=== PATIENT | female | born 1930 | race Caucasian/White ===

== ENCOUNTER → 2016-10-02 | Outpatient (REF) | payer OTHER ==
[2016-10-02 16:29] LABS: ANION GAP 5 MEQ/L (8-16); BLOOD UREA NITROGEN 20 MG/DL (7-18); CALCIUM LEVEL 9.5 MG/DL (8.8-10.2); CARBON DIOXIDE LEVEL 32 MEQ/L (21-32); CHLORIDE LEVEL 105 MEQ/L (98-107); CREATININE FOR GFR 0.94 MG/DL (0.55-1.02); GLOMERULAR FILTRATION RATE > 60.0 (>32); GLUCOSE, FASTING 84 MG/DL (83-110); POTASSIUM SERUM 4.4 MEQ/L (3.5-5.1); SODIUM LEVEL 142 MEQ/L (136-145)
== END ==
LOC: M SFHCPLAZ 13:53
PROVIDERS: ATTEND Family Medicine
DX: I10 Essential (primary) hypertension (principal)
CPT/HCPCS: 80048; G0463

== ENCOUNTER → 2017-06-10 | Outpatient (REF) | payer OTHER ==
[2017-06-10 20:03] LABS: ANION GAP 6 MEQ/L (8-16); BLOOD UREA NITROGEN 15 MG/DL (7-18); CALCIUM LEVEL 9.3 MG/DL (8.8-10.2); CARBON DIOXIDE LEVEL 32 MEQ/L (21-32); CHLORIDE LEVEL 109 MEQ/L (98-107); CREATININE FOR GFR 0.94 MG/DL (0.55-1.30); GLOMERULAR FILTRATION RATE > 60.0 (>32); GLUCOSE, FASTING 87 MG/DL (70-100); POTASSIUM SERUM 4.3 MEQ/L (3.5-5.1); SODIUM LEVEL 147 MEQ/L (136-145)
== END ==
LOC: M SFHCPLAZ 15:32
DX: I10 Essential (primary) hypertension (principal); Z23 Encounter for immunization
CPT/HCPCS: 80048

== ENCOUNTER → 2017-06-16 | Outpatient (REF) | payer OTHER | LOC: M LAB REF 12:34 | DX: R53.83 Other fatigue (principal); R80.0 Isolated proteinuria | CPT/HCPCS: 87086 ==

== ENCOUNTER → 2018-08-18 | Outpatient (REF) | payer MEDICARE ==
[2018-08-18 15:01] LABS: BASO % 0.3 % (0.0-1.0); EOS # 0.1 10^3/uL (0.0-0.50); EOS % 1.6 % (0.0-3.0); HEMATOCRIT 34.2 % (36.0-47.0); HEMOGLOBIN 10.9 g/dl (12.0-15.5); LYMPH # 1.3 10^3/uL (1.5-4.5); LYMPH % 16.6 % (24.0-44.0); MEAN CORPUSCULAR HEMOGLOBIN 29.9 pg (27.0-33.0); MEAN CORPUSCULAR HGB CONC 31.9 g/dl (32.0-36.5); MEAN CORPUSCULAR VOLUME 93.7 fl (80.0-96.0); MONO # 0.6 10^3/uL (0.0-0.8); MONO % 7.8 % (0.0-5.0); NEUTROPHILS # 5.6 10^3/uL (1.8-7.7); NEUTROPHILS % 73.3 % (36.0-66.0); PLATELET COUNT, AUTOMATED 316 10^3/uL (150-450); RED BLOOD COUNT 3.65 10^6/uL (4.00-5.40); WHITE BLOOD COUNT 7.7 10^3/uL (4.0-10.0)
[2018-08-18 15:29] LABS: CREATININE FOR GFR 1.15 MG/DL (0.55-1.30); GLOMERULAR FILTRATION RATE 47.5 (>32); POTASSIUM SERUM 4.1 MEQ/L (3.5-5.1)
[2018-08-18 15:30] LABS: CALCIUM LEVEL 8.8 MG/DL (8.8-10.2); URIC ACID 13.3 MG/DL (2.6-6.0)
== END ==
LOC: M SFHCPLAZ 13:53
PROVIDERS: ATTEND Family Medicine
DX: I50.9 Heart failure, unspecified (principal); L03.116 Cellulitis of left lower limb
CPT/HCPCS: 36415; 80048; 83880; 84550; 85025; G0463

== ENCOUNTER → 2018-08-21 | Outpatient (REF) | payer MEDICARE ==
[2018-08-21 16:22] LABS: CALCIUM LEVEL 9.4 MG/DL (8.8-10.2); CREATININE FOR GFR 1.24 MG/DL (0.55-1.30); GLOMERULAR FILTRATION RATE 43.6 (>32); POTASSIUM SERUM 4.2 MEQ/L (3.5-5.1)
== END ==
LOC: M SFHCPLAZ 14:53
PROVIDERS: ATTEND Family Medicine
DX: I50.9 Heart failure, unspecified (principal)

== ENCOUNTER → 2018-09-14 | Outpatient (REF) | payer MEDICARE ==
[2018-09-14 19:32] LABS: CALCIUM LEVEL 9.1 MG/DL (8.8-10.2); CREATININE FOR GFR 1.76 MG/DL (0.55-1.30); GLOMERULAR FILTRATION RATE 29.1 (>32)
== END ==
LOC: M SFHCPLAZ 14:02
PROVIDERS: ATTEND Family Medicine
DX: I50.43 Acute on chronic combined systolic (congestive) and diastolic (congestive) heart failure (principal)

== ENCOUNTER → 2018-09-18 | Outpatient (REF) | payer MEDICARE ==
[2018-09-18 17:09] LABS: CALCIUM LEVEL 8.8 MG/DL (8.8-10.2); CREATININE FOR GFR 1.56 MG/DL (0.55-1.30); GLOMERULAR FILTRATION RATE 33.4 (>32); POTASSIUM SERUM 3.6 MEQ/L (3.5-5.1)
== END ==
LOC: M SFHCPLAZ 12:42
PROVIDERS: ATTEND Family Medicine
DX: R79.89 Other specified abnormal findings of blood chemistry (principal)

== ENCOUNTER → 2018-10-05 | Outpatient (CLI) | payer MEDICARE ==
--- NOTE | 2018-10-05 15:57 | REP ---
Right lower extremity Duplex Doppler venous ultrasound: Real time compression and duplex Doppler interrogation of the right lower extremity deep venous system is performed. The right common femoral, superficial femoral and popliteal veins are fully compressible with transducer pressure and demonstrate normal spontaneous and phasic flow, without evidence of deep venous thrombosis. Impression: No evidence of deep venous thrombosis of the right lower extremity femoral popliteal venous system. A Nolen's cyst measures 5.2 x 0.9 x 2.6 cm. Electronically Signed by Benjamín Erwin MD 10/05/2018 03:47 P
[2018-10-05 16:08] LABS: CALCIUM LEVEL 8.2 MG/DL (8.8-10.2); CREATININE FOR GFR 1.83 MG/DL (0.55-1.30); GLOMERULAR FILTRATION RATE 27.8 (>32); POTASSIUM SERUM 3.8 MEQ/L (3.5-5.1)
== END ==
LOC: M RAD 15:02
PROVIDERS: ATTEND Family Medicine
DX: M71.21 Synovial cyst of popliteal space [Baker], right knee (principal); M79.89 Other specified soft tissue disorders; R94.4 Abnormal results of kidney function studies
CPT/HCPCS: 36415; 80048; 93971; G0463

== ENCOUNTER → 2018-12-01 | Outpatient (REF) | payer MEDICARE ==
[2018-12-01 17:45] LABS: FERRITIN 106 NG/ML (8-252); IRON (FE) 42 UG/DL (50-170); PERCENT SATURATION 18.5 % (13.2-45.0); TOTAL IRON BINDING CAPACITY 227 UG/DL (250-450)
[2018-12-01 17:48] LABS: VITAMIN B12 LEVEL > 2000 PG/ML
[2018-12-01 17:49] LABS: FOLATE > 24.0 NG/ML
== END ==
LOC: M LAB REF 17:01
PROVIDERS: ATTEND Internal Medicine Nephrology
DX: D64.9 Anemia, unspecified (principal)

== ENCOUNTER → 2018-12-07 | Outpatient (CLI) | payer MEDICARE ==
[~2018-12-07] MED LIST: ADV250INH INH; ALLO100T PO; ARIC1TAB PO; ASPI81TA85 PO; BYST5TAB2 PO; CALC500C16 PO; CALC500T68 PO; COLC1TAB14 PO; CVS5000S2 PO; IRBE300T10 PO; SIMV40TA2 PO; ZYLO300T6 PO
--- NOTE | 2018-12-07 11:58 | REP ---
REASON FOR EXAM: History of renal calculi and renal disease. COMPARISON: There are no priors for comparison. Right kidney measures 8.6 x 4 x 4.1 cm and left kidney measures 9 x 4 x 3.4 cm. The renal cortical echoes are within normal limits. Cortical medullary differentiation is preserved. No hydronephrosis is seen in either kidney. In the inferior pole of the right kidney, there are two anechoic structures, one measures 2.4 x 1.8 x 2.5 cm and the other 3.5 x 2.3 x 3.1 cm. Both represent Bosniak class I renal cysts. There are no septations or mural nodules. There is an anechoic structure in the interpolar region of the left kidney measuring 2 x 1.8 x 1.7 cm exhibiting posterior wall enhancement and increased through transmission. This represents simple cyst. There are two echogenic foci in the inferior pole of the left kidney one measures 6 mm and the other 8 mm. These cast subtle acoustic shadows consistent with calcific deposition. Pre- and postvoid urinary volume calculations were obtained. The pre-void volume calculation was measured at 104 mL and the postvoid calculation was measured at 17 mL rendering a 16% postvoid residual. No bladder wall abnormalities were seen. IMPRESSION: 1. Bilateral renal cysts. 2. Echogenic foci seen in the left kidney consistent with renal calculi. It should be stated that an old CT scan on 09/22/2015 did show left renal calculi. I cannot state with certainty that the calcifications seen today represent the calcifications seen on the CT. If clinically relevant obtain CT without contrast so as it can be exactly compared to the prior CT. Electronically Signed by Juan Montelongo DO 12/07/2018 12:49 P
== END ==
LOC: M RAD 09:46
PROVIDERS: ATTEND Internal Medicine Nephrology
DX: I50.9 Heart failure, unspecified (principal); I12.9 Hypertensive chronic kidney disease with stage 1 through stage 4 chronic kidney disease, or unspecified chronic kidney disease; N18.3 Chronic kidney disease, stage 3 (moderate); N28.1 Cyst of kidney, acquired

== ENCOUNTER 2018-12-14 09:38 | Inpatient (IN) | payer MEDICARE ==
[~2018-12-14] VITALS: Ht 154.9 cm; Wt 65.1 kg
[2018-12-14] MEDS ORDERED: ASPI81TA85 PO (10:10)
[2018-12-14] MEDS ORDERED: ARIC1TAB PO (10:10)
[2018-12-14] MEDS ORDERED: COLC1TAB14 PO (10:10)
[2018-12-14] MEDS ORDERED: IRBE300T10 PO (10:10)
[2018-12-14] MEDS ORDERED: SIMV40TA2 PO (10:10)
[2018-12-14] MEDS ORDERED: BYST5TAB2 PO (10:10)
[2018-12-14] MEDS ORDERED: ALLO100T PO (10:10)
[2018-12-14] MEDS ORDERED: CALC500T68 PO (10:10)
[2018-12-14] MEDS ORDERED: CVS5000S2 PO (10:10)
[2018-12-14 11:08] LABS: BASO % 0.2 % (0.0-1.0); EOS # 0.3 10^3/uL (0.0-0.50); EOS % 3.2 % (0.0-3.0); HEMATOCRIT 36.1 % (36.0-47.0); HEMOGLOBIN 11.8 g/dl (12.0-15.5); LYMPH # 0.8 10^3/uL (1.5-4.5); LYMPH % 7.5 % (24.0-44.0); MEAN CORPUSCULAR HGB CONC 32.7 g/dl (32.0-36.5); MEAN CORPUSCULAR VOLUME 91.9 fl (80.0-96.0); MONO # 0.4 10^3/uL (0.0-0.8); MONO % 4.2 % (0.0-5.0); NEUTROPHILS # 8.8 10^3/uL (1.8-7.7); NEUTROPHILS % 83.9 % (36.0-66.0); PLATELET COUNT, AUTOMATED 162 10^3/uL (150-450); RED BLOOD COUNT 3.93 10^6/uL (4.00-5.40); WHITE BLOOD COUNT 10.5 10^3/uL (4.0-10.0)
[2018-12-14] MEDS ORDERED: ACETAMINOPHEN TAB 650MG DOSE (2X325MG) PO ONE (11:15)
[2018-12-14] MEDS ORDERED: cefTRIAXone SOD 1 GM in D5W MINI-BAG PLUS 50 ML IV ONE (11:30)
[2018-12-14 11:47] LABS: ALBUMIN 2.8 GM/DL (3.2-5.2); ALT/SGPT 15 U/L (12-78); BILIRUBIN,DIRECT 0.2 MG/DL (0.0-0.2); BILIRUBIN,TOTAL 0.7 MG/DL (0.2-1.0); BLOOD UREA NITROGEN 26 MG/DL (7-18); CALCIUM LEVEL 8.4 MG/DL (8.8-10.2); CARBON DIOXIDE LEVEL 27 MEQ/L (21-32); CHLORIDE LEVEL 99 MEQ/L (98-107); CK-MB VALUE MASS 3.1 NG/ML (<3.6); CPK CREATINE PHOSPHOKINASE 218 U/L (26-192); CREATININE FOR GFR 1.15 MG/DL (0.55-1.30); GLOMERULAR FILTRATION RATE 47.5 (>32); GLUCOSE, FASTING 89 MG/DL (70-100); MB/CK RELATIVE INDEX 1.42 (< OR =4); POTASSIUM SERUM 3.9 MEQ/L (3.5-5.1); SODIUM LEVEL 134 MEQ/L (136-145); THYROID STIMULATING HORMONE 0.707 uIU/ML (0.358-3.740); TOTAL PROTEIN 6.5 GM/DL (6.4-8.2); TROPONIN I 0.09 NG/ML (< 0.10)
[2018-12-14 11:52] LABS: ETHYL ALCOHOL (ETHANOL) < 0.003 % (0.000-0.010)
[2018-12-14] MEDS ORDERED: ZYLO300T6 PO (11:53)
[2018-12-14] MEDS ORDERED: CALC500C16 PO (11:53)
[2018-12-14] MEDS ORDERED: ADV250INH INH (11:55)
[2018-12-14] MEDS ORDERED: AZITHROMYCIN INJ 500 MG, VIAL MATE ADAPTER 1 EACH in D5W 250 ML IV ONE (12:00)
--- NOTE | 2018-12-14 13:46 | REP ---
REASON: Altered mental status. PRIORS: None. The ventricles and sulci are within normal limits. There are no extra-axial fluid collections. There is no shift of the midline structures. Patchy lucency is seen throughout the deep cerebral white matter of the east radiata and centrum semiovale bilaterally. No one area is more suspicious than any other. Posterior fossa is without evidence of hemorrhage or mass effect. There is no skull fracture. The paranasal sinuses and mastoid air cells are within normal limits. IMPRESSION: There is no evidence of an acute intracranial hemorrhagic or nonhemorrhagic event. There is evidence of deep white matter ischemic change. There is cerebral and cerebellar atrophy. If an acute nonhemorrhagic infarction is of clinical concern consider followup with MRI. Electronically Signed by Juan Montelongo DO 12/14/2018 02:07 P
--- NOTE | 2018-12-14 13:56 | REP ---
Altered mental status. Comparison: 02/28/2015. The technique utilized in obtaining the radiograph has magnified the cardiac silhouette and accentuated the interstitial markings. The cardiac silhouette is accentuated by technique. Mild cardiomegaly cannot be ruled out. Patchy opacities are seen in the left retrocardiac region representing a change from the prior exam. There is a slight left CP angle blunting. The right lung field is essentially unchanged with no abnormal opacities having developed since the last exam. There is no significant change in the osseous structures. IMPRESSION: 1. Technique as described above. 2. Opacities in the left lower lobe pneumonia/subsegmental atelectasis correlate clinically with appropriate followup. 3. Other findings as described above. Electronically Signed by Juan Montelongo DO 12/14/2018 02:07 P
[2018-12-14] MEDS ORDERED: ACETAMINOPHEN TAB 650MG DOSE (2X325MG) PO PRN (14:15)
[2018-12-14] MEDS ORDERED: IPRATROPIUM 0.5MG/ALBUTEROL 2.5MG INH SOL UD 3ML (DUONEB)(J7620) INH PRN (14:15)
[2018-12-14] MEDS ORDERED: MAALOX 30 ML SUSP *UDC PO PRN (14:15)
[2018-12-14] MEDS ORDERED: MOM 30ML SUSPENSION UDC PO PRN (14:15)
[2018-12-14] MEDS ORDERED: PILL CUTTER 1 EACH XX PRN (15:15)
--- NOTE | 2018-12-14 15:21 | HPEPDOC ---
[facility] Medical History & Physical Date of Admission Dec 14, 2018 Date of Service: Dec 14, 2018 Primary Care Physician: KANCHAN BLOOM MD Attending Physician: BECK GU MD History and Physical CHIEF COMPLAINT: Altered mental status HISTORY OF PRESENT ILLNESS: 88-year-old female who presented to the emergency room with altered mental status, as noticed by family members. The patient's son notes that she appeared very lethargic and unable to hold a conversation this morning when she woke up. The son states that yesterday she did seem slightly off of her baseline for her mental status, but the day before. They didn't notice any altered mental status. The son also notes that the patient did seem febrile at home this morning. Family members present in the room and provided most of the history, as the patient was fairly lethargic and unable to hold a conversation. The family does note that the patient was recently treated within the past couple of weeks for a gout flare of her knee and hand with a course of prednisone, which she did complete some time in the past week. Otherwise, there have been no recent changes to her medications or health status recently. Patient is lethargic and has difficulty answering questions, so most of the history was obtained from family members present in the room. PAST MEDICAL HISTORY: 1. Hypertension 2. CHF 3. Hyperlipidemia. 4. Asthma. 5. Dementia. 6. Gout. 7. B12 deficiency. 8. Diverticulosis PAST SURGICAL HISTORY: None reported by family, unable to obtain hx from patient due to lethargy SOCIAL HISTORY: Never smoker according to family, unable to obtain hx from patient due to lethargy FAMILY HISTORY: Reviewed with family members, noncontributory ALLERGIES: Please see below. REVIEW OF SYSTEMS: Unable to obtain from patient due to lethargy. HOME MEDICATIONS: Please see below. PHYSICAL EXAMINATION: VITAL SIGNS: Temperature 102.2, pulse, 93, respiratory rate 24, blood pressure and 134/62, pulse oximetry 90 % on room air. GENERAL APPEARANCE: Comfortable, lethargic, laying in bed, no acute distress HEENT: PERRLA, EOMI, moist mucous membranes CARDIOVASCULAR: Regular rate and rhythm. Normal S1 and S2, 3/6 MALINI right upper sternal border LUNGS: Rhonchi present in the left lung base, right lung and upper left lung clear to auscultation. ABDOMEN: Soft, nontender, nondistended, bowel sounds present, no masses or hepatosplenomegaly appreciated MUSCULOSKELETAL: Strength appears to be 4/5 in all 4 extremities, difficult to assess due to lethargy EXTREMITIES: No edema or cyanosis. Pulses 2+/4 and radial and posterior tibial arteries NEUROLOGICAL: Difficult to assess due to lethargy, no focal deficits appreciated PSYCHIATRIC: Lethargic LABORATORY DATA: See below. IMAGING: CXR 12/14: The cardiac silhouette is accentuated by technique. Mild cardiomegaly cannot be ruled out. Patchy opacities are seen in the left retrocardiac region representing a change from the prior exam. There is a slight left CP angle blunting. Head CT 12/14:There is no evidence of an acute intracranial hemorrhagic or nonhemorrhagic event. There is evidence of deep white matter ischemic change. There is cerebral and cerebellar atrophy. If an acute nonhemorrhagic infarction is of clinical concern consider followup with MRI. MICROBIOLOGY: Please see below. ASSESSMENT: 88-year-old female who presents with 1 day history of altered mental status, subjective fevers at home, and fever up to 102.2 in the ED with area of consolidation on chest x-ray, admitted for treatment of community-acquired pneumonia. PLAN: 1. Community acquired pneumonia. Patient presented with fever up to 102.2 and altered mental status and was found to have an area of consolidation on chest x-ray suggestive of pneumonia. Antibiotic coverage with ceftriaxone (day #1 of 5) and azithromycin (day #1 of 5). Blood cultures pending. If she is able to produce some sputum, will also send a sputum culture. We'll check lactic acid level and pro-calcitonin. Did require oxygen via nasal cannula while in the ED, but is currently doing well off of it. Titrate supplemental oxygen for O2 saturation above 90%. 2. Altered mental status. Patient does have some baseline dementia, but family states she did have a acute change in mental status this morning and is not typically this lethargic or difficult to converse with. Altered mental status is likely due to a decompensation of her dementia due to acute illness with pneumonia Head CT negative for acute stroke. May follow-up with MRI if mental status does not improve with pneumonia treatment 3. Hypertension. Continue home irbesartan and nebivolol 4. CHF. Continue home nebivolol. 5. Asthma. Continue home Advair, DuoNeb nebs as needed. 6. Gout. Continue home medications including allopurinol and cultures seen. 7. Dementia. Continue home donepezil. 8. Hyperlipidemia. Continue home simvastatin. 9. B12 deficiency. Continue home B12 supplementation. 10. DVT prophylaxis. Lovenox Disposition: Inpatient pending clinical improvement Vital Signs Vital Signs Date Time Temp Pulse Resp B/P (MAP) Pulse Ox O2 Delivery O2 Flow Rate FiO2 12/14/18 14:08 61 87 12/14/18 13:59 98.0 12/14/18 11:08 Room Air 12/14/18 09:53 24 134/62 Laboratory Data Labs 24H Laboratory Tests 2 12/14/18 10:54: Immature Granulocyte % (Auto) 1.0, White Blood Count 10.5H, Red Blood Count 3.93L, Hemoglobin 11.8L, Hematocrit 36.1, Mean Corpuscular Volume 91.9, Mean Corpuscular Hemoglobin 30.0, Mean Corpuscular Hemoglobin Concent 32.7, Red Cell Distribution Width 14.7H, Platelet Count 162, Neutrophils (%) (Auto) 83.9H, Lymphocytes (%) (Auto) 7.5L, Monocytes (%) (Auto) 4.2, Eosinophils (%) (Auto) 3.2H, Basophils (%) (Auto) 0.2, Neutrophils # (Auto) 8.8H, Lymphocytes # (Auto) 0.8L, Monocytes # (Auto) 0.4, Eosinophils # (Auto) 0.3, Basophils # (Auto) 0.0, Nucleated Red Blood Cells % (auto) 0.0, Urine Color YELLOW, Urine Appearance HAZY, Urine pH 5.0, Urine Specific [place] 1.014, Urine Protein NEGATIVE, Urine Glucose (UA) NEGATIVE, Urine Ketones NEGATIVE, Urine Blood 2+H, Urine Nitrite NEGATIVE, Urine Bilirubin NEGATIVE, Urine Urobilinogen 0.2, Urine Leukocyte Esterase NEGATIVE, Urine WBC (Auto) 0, Urine RBC (Auto) 27H, Urine Hyaline Casts (Auto) 0, Urine Bacteria (Auto) NEGATIVE, Urine Squamous Epithelial Cells 0, Urine Amorphous Sediment SMALLH, Urine Sperm (Auto) , Anion Gap 8, Glomerular Filtration Rate 47.5, Calcium Level 8.4L, Aspartate Amino Transf (AST/SGOT) 21, Alanine Aminotransferase (ALT/SGPT) 15, Alkaline Phosphatase 69, Total Bilirubin 0.7, Direct Bilirubin 0.2, Ammonia < 10, Total Creatine Kinase 218H, Creatine Kinase MB 3.1, Creatine Kinase MB Relative Index 1.42, Troponin I 0.09, Total Protein 6.5, Albumin 2.8L, Albumin/Globulin Ratio 0.76L, Thyroid Stimulating Hormone (TSH) 0.707, Ethyl Alcohol Level < 0.003 12/14/18 11:26: Bedside Glucose (Misc Panel) 88 CBC/BMP Laboratory Tests 12/14/18 10:54 Red Blood Count 3.93 L, Mean Corpuscular Volume 91.9, Mean Corpuscular Hemoglobin 30.0, Mean Corpuscular Hemoglobin Concent 32.7, Red Cell Distribution Width 14.7 H, Neutrophils (%) (Auto) 83.9 H, Lymphocytes (%) (Auto) 7.5 L, Monocytes (%) (Auto) 4.2, Eosinophils (%) (Auto) 3.2 H, Basophils (%) (Auto) 0.2, Neutrophils # (Auto) 8.8 H, Lymphocytes # (Auto) 0.8 L, Monocytes # (Auto) 0.4, Eosinophils # (Auto) 0.3, Basophils # (Auto) 0.0 Microbiology Microbiology 12/14/18 Blood Culture, Received Pending 12/14/18 Blood Culture, Received Pending Home Medications Scheduled Allopurinol (Zyloprim) 300 Mg Tablet, 300 MG PO DAILY Aspirin (Aspir 81) 81 Mg Tablet.dr, 81 MG PO DAILY Calcium Carbonate (Calcium) 500 Mg Tab.chew, 500 MG PO DAILY Colchicine (Colcrys) 0.6 Mg Tablet, 0.3 MG PO DAILY Cyanocobalamin (Vitamin B-12) (Vitamin B12) 5,000 Mcg Tab.rapdis, 5,000 MCG PO DAILY Donepezil HCl (Aricept) 5 Mg Tablet, 5 MG PO QHS Irbesartan (Irbesartan) 300 Mg Tablet, 300 MG PO DAILY Nebivolol HCl (Bystolic) 5 Mg Tablet, 5 MG PO DAILY Salmeterol/Fluticasone (Advair 250-50 Diskus) 1 Each Blst.w.dev, 1 PUFF INH BID Simvastatin (Simvastatin) 40 Mg Tablet, 40 MG PO QHS Allergies Coded Allergies: No Known Allergies (Verified , 11/01/02) A-FIB/CHADSVASC A-FIB History Current/History of A-Fib/PAF?: No NOELLE SANDRA PGY-1 Dec 14, 2018 15:21
[2018-12-14 15:55] VITALS: BP 142/76
[2018-12-14] MEDS: ALLOPURINOL 300 MG TAB PO SCH (17:57)
[2018-12-14] MEDS: CALCIUM CARBONATE 500 MG CHEW U/D PO SCH (17:58)
[2018-12-14] MEDS: ASPIRIN 81 MG ENTERIC TAB PO SCH (17:58)
[2018-12-14] MEDS: NEBIVOLOL 5 MG TAB (BYSTOLIC) PO SCH (18:57)
[2018-12-14] MEDS: COLCHICINE 0.6 MG TAB PO SCH (18:58)
[2018-12-14] MEDS: IRBESARTAN 150 MG TAB PO SCH (18:58)
[2018-12-14] MEDS: ADVAIR HFA 115/21MCG INHALER INH SCH (20:00)
[2018-12-14] MEDS: DONEPEZIL 5 MG TAB PO SCH (20:01)
[2018-12-14] MEDS: SIMVASTATIN 40 MG TAB PO SCH (20:01)
[2018-12-14 22:00] VITALS: BP 125/85
[2018-12-15 06:00] VITALS: BP 127/79
[2018-12-15 07:39] LABS: BASO % 0.1 % (0.0-1.0); EOS # 0.5 10^3/uL (0.0-0.50); EOS % 4.4 % (0.0-3.0); HEMATOCRIT 34.2 % (36.0-47.0); HEMOGLOBIN 11.2 g/dl (12.0-15.5); LYMPH # 0.6 10^3/uL (1.5-4.5); MEAN CORPUSCULAR HGB CONC 32.7 g/dl (32.0-36.5); MEAN CORPUSCULAR VOLUME 91.7 fl (80.0-96.0); MONO # 0.4 10^3/uL (0.0-0.8); NEUTROPHILS % 84.7 % (36.0-66.0); PLATELET COUNT, AUTOMATED 144 10^3/uL (150-450); RED BLOOD COUNT 3.73 10^6/uL (4.00-5.40); WHITE BLOOD COUNT 10.6 10^3/uL (4.0-10.0)
[2018-12-15 08:08] LABS: CALCIUM LEVEL 8.3 MG/DL (8.8-10.2); CREATININE FOR GFR 1.09 MG/DL (0.55-1.30); GLOMERULAR FILTRATION RATE 50.5 (>32); MAGNESIUM LEVEL 2.2 MG/DL (1.8-2.4); POTASSIUM SERUM 3.6 MEQ/L (3.5-5.1)
[2018-12-15] MEDS: ADVAIR HFA 115/21MCG INHALER INH SCH ×2 (08:09→19:53)
[2018-12-15] MEDS: ALLOPURINOL 300 MG TAB PO SCH (08:52)
[2018-12-15] MEDS: CALCIUM CARBONATE 500 MG CHEW U/D PO SCH (08:52)
[2018-12-15] MEDS: ASPIRIN 81 MG ENTERIC TAB PO SCH (08:52)
[2018-12-15] MEDS: COLCHICINE 0.6 MG TAB PO SCH (08:53)
[2018-12-15] MEDS: ENOXAPARIN 30 MG/0.3 ML SYR (J1650) SC SCH (08:53)
[2018-12-15] MEDS: IRBESARTAN 150 MG TAB PO SCH (08:53)
[2018-12-15] MEDS: NEBIVOLOL 5 MG TAB (BYSTOLIC) PO SCH (08:53)
--- NOTE | 2018-12-15 10:08 | IPNPDOC ---
Date Seen The patient was seen on 12/15/18. Progress Note SUBJECTIVE: Patient is a 88-year-old female presented with change in mental status from baseline and fever, admitted for treatment of community-acquired pneumonia Patient is seen and examined today in her room, laying in bed. She is still fairly confused but does appear less lethargic than yesterday and is better able to hold a conversation. She is oriented only to person. Family present number present in the room does note that she seems to have a worsening rash. Family member states they did notice a rash on her abdomen yesterday before she was admitted to the hospital and that seems to be worse today extending onto her back and her extremities. Patient is unaware of the rash, and denies any itchiness or burning of skin. She denies fevers, chills, headaches, lightheadedness, shortness of breath, cough, chest pain, palpitations, nausea, vomiting, abdominal pain, diarrhea, dysuria, urinary frequency. OBJECTIVE: PHYSICAL EXAMINATION: VITAL SIGNS: Please see below. GENERAL: More alert, thin yesterday, but still somewhat lethargic., Comfortable, in no acute distress HEENT: PERRLA, EOMI, moist mucous membranes CARDIOVASCULAR: Regular rate and rhythm. Normal S1 and S2, 3/6 MALINI right upper sternal border RESPIRATORY: Mild rhonchi present in the left lung base , improved from yes terday, right lung and upper left lung clear to auscultation. ABDOMINAL: Soft, nontender, nondistended, bowel sounds present, no masses or hepatosplenomegaly appreciated EXTREMITIES: No edema or cyanosis. Pulses 2+/4 and radial and posterior tibial arteries, bilateral calf tenderness NEUROLOGICAL: Alert and oriented 1 to person only, cranial nerves 212 grossly intact, no focal deficits appreciated PSYCHOLOGICAL: Somewhat lethargic and confused SKIN: Diffuse , patchy, maculopapular blanching rash which is worse on the back that extends onto the chest, arms, and legs. She also has a rash on her abdomen, which is erythematous, blanching and is not patchy. LABORATORY DATA, IMAGING STUDIES, MICROBIOLOGY: Please see below. IMAGING: CXR 12/14: The cardiac silhouette is accentuated by technique. Mild cardiomegaly cannot be ruled out. Patchy opacities are seen in the left retrocardiac region r epresenting a change from the prior exam. There is a slight left CP angle blunting. Head CT 12/14:There is no evidence of an acute intracranial hemorrhagic or nonhemorrhagic event. There is evidence of deep white matter ischemic change. There is cerebral and cerebellar atrophy. If an acute nonhemorrhagic infarction is of clinical concern consider followup with MRI. ASSESSMENT AND PLAN: This is a 88-year-old female presented with change in mental status from baseline and fever, admitted for treatment of community- acquired pneumonia. PROBLEMS: 1. Community acquired pneumonia. Patient presented with fever up to 102.2 and altered mental status and was found to have an area of consolidation on chest x-ray suggestive of pneumonia. Antibiotic coverage with ceftriaxone (day #2 of 5) and azithromycin (day #2 of 5). Blood cultures pending. If she is able to produce some sputum, will also send a sputum culture. Lactic acid level normal at 0.8, procalcitonin pending Did require oxygen via nasal cannula while in the ED, but is currently doing well off of it. Titrate supplemental oxygen for O2 saturation above 90%. 2. rash Rash present on the abdomen appears to be more of a heat rash which may have been associated with her fever. We will continue to watch and make sure this improves. Rash present on the arms, legs, and back match where the gown touches her skin. Believe this may be a sensitivity reaction to the gown. We will have a family member bring in that down for her to wear home and see if this helps. If the rash does not improve, may consider other causes of rash with fever such as viral illness. 3. Altered mental status. Patient does have some baseline dementia, but family states she did have a acute change in mental status. On the day of presentation and is not typically so lethargic or difficult to converse with. Suspect altered mental status is due to a decompensation of her dementia due to acute illness Head CT negative for acute stroke. May follow-up with MRI if mental status does not improve with pneumonia treatment Patient does seem much more alert today than on presentation, but is still fairly confused and only oriented 1 to person, which is not her baseline. She cannot remember her date of , which family states at her baseline she would always remember this easily. 4. Hypertension. Continue home irbesartan and nebivolol 5. CHF. Continue home nebivolol. 6. Asthma. Continue home Advair, DuoNeb nebs as needed. 7. Gout. Continue home medications including allopurinol and cultures seen. 8. Dementia. Continue home donepezil. 9. Hyperlipidemia. Continue home simvastatin. 10. B12 deficiency. Continue home B12 supplementation. 11. DVT prophylaxis. Lovenox DISPOSITION: Inpatient pending clinical improvement Attending Note I saw and evaluated the patient. I agree with the finding and plan of care as documented in the resident's note. VS, I&O, 24H, Fishbone Vital Signs/I&O Vital Signs Date Time Temp Pulse Resp B/P (MAP) Pulse Ox O2 Delivery O2 Flow Rate FiO2 12/15/18 09:02 98.7 12/15/18 08:53 127/79 12/15/18 06:00 88 19 98 12/14/18 11:08 Room Air I&O- Last 24 Hours up to 6 AM 12/15/18 06:00 Intake Total 300 ml Output Total 500 ml Balance -200 ml Laboratory Data 24H LABS Laboratory Tests 2 12/14/18 10:54: Immature Granulocyte % (Auto) 1.0, White Blood Count 10.5H, Red Blood Count 3.93L, Hemoglobin 11.8L, Hematocrit 36.1, Mean Corpuscular Volume 91.9, Mean Corpuscular Hemoglobin 30.0, Mean Corpuscular Hemoglobin Concent 32.7, Red Cell Distribution Width 14.7H, Platelet Count 162, Neutrophils (%) (Auto) 83.9H, Lymphocytes (%) (Auto) 7.5L, Monocytes (%) (Auto) 4.2, Eosinophils (%) (Auto) 3.2H, Basophils (%) (Auto) 0.2, Neutrophils # (Auto) 8.8H, Lymphocytes # (Auto) 0.8L, Monocytes # (Auto) 0.4, Eosinophils # (Auto) 0.3, Basophils # (Auto) 0.0, Nucleated Red Blood Cells % (auto) 0.0, Urine Color YELLOW, Urine Appearance HAZY, Urine pH 5.0, Urine Specific [place] 1.014, Urine Protein NEGATIVE, Urine Glucose (UA) NEGATIVE, Urine Ketones NEGATIVE, Urine Blood 2+H, Urine Nitrite NEGATIVE, Urine Bilirubin NEGATIVE, Urine Urobilinogen 0.2, Urine Leukocyte Esterase NEGATIVE, Urine WBC (Auto) 0, Urine RBC (Auto) 27H, Urine Hyaline Casts (Auto) 0, Urine Bacteria (Auto) NEGATIVE, Urine Squamous Epithelial Cells 0, Urine Amorphous Sediment SMALLH, Urine Sperm (Auto) , Anion Gap 8, Glomerular Filtration Rate 47.5, Calcium Level 8.4L, Aspartate Amino Transf (AST/SGOT) 21, Alanine Aminotransferase (ALT/SGPT) 15, Alkaline Phosphatase 69, Total Bilirubin 0.7, Direct Bilirubin 0.2, Ammonia < 10, Total Creatine Kinase 218H, Creatine Kinase MB 3.1, Creatine Kinase MB Relative Index 1.42, Troponin I 0.09, Total Protein 6.5, Albumin 2.8L, Albumin/Globulin Ratio 0.76L, Thyroid Stimulating Hormone (TSH) 0.707, Ethyl Alcohol Level < 0.003 12/14/18 11:26: Bedside Glucose (Misc Panel) 88 12/14/18 14:51: Lactic Acid Level 0.8 12/15/18 07:27: Immature Granulocyte % (Auto) 0.8, White Blood Count 10.6H, Red Blood Count 3.73L, Hemoglobin 11.2L, Hematocrit 34.2L, Mean Corpuscular Volume 91.7, Mean Corpuscular Hemoglobin 30.0, Mean Corpuscular Hemoglobin Concent 32.7, Red Cell Distribution Width 14.9H, Platelet Count 144L, Neutrophils (%) (Auto) 84.7H, Lymphocytes (%) (Auto) 6.0L, Monocytes (%) (Auto) 4.0, Eosinophils (%) (Auto) 4.4H, Basophils (%) (Auto) 0.1, Neutrophils # (Auto) 9.0H, Lymphocytes # (Auto) 0.6L, Monocytes # (Auto) 0.4, Eosinophils # (Auto) 0.5, Basophils # (Auto) 0.0, Nucleated Red Blood Cells % (auto) 0.0, Anion Gap 10, Glomerular Filtration Rate 50.5, Calcium Level 8.3L, Blood Urea Nitrogen 22H, Creatinine 1.09, Sodium Level 139, Potassium Level 3.6, Chloride Level 105, Carbon Dioxide Level 24, Magnesium Level 2.2 CBC/BMP Laboratory Tests 12/14/18 10:54 Red Blood Count 3.93 L, Mean Corpuscular Volume 91.9, Mean Corpuscular Hemoglobin 30.0, Mean Corpuscular Hemoglobin Concent 32.7, Red Cell Distribution Width 14.7 H, Neutrophils (%) (Auto) 83.9 H, Lymphocytes (%) (Auto) 7.5 L, Monocytes (%) (Auto) 4.2, Eosinophils (%) (Auto) 3.2 H, Basophils (%) (Auto) 0.2, Neutrophils # (Auto) 8.8 H, Lymphocytes # (Auto) 0.8 L, Monocytes # (Auto) 0.4, Eosinophils # (Auto) 0.3, Basophils # (Auto) 0.0 12/15/18 07:27 Red Blood Count 3.73 L, Mean Corpuscular Volume 91.7, Mean Corpuscular Hemoglobin 30.0, Mean Corpuscular Hemoglobin Concent 32.7, Red Cell Distribution Width 14.9 H, Neutrophils (%) (Auto) 84.7 H, Lymphocytes (%) (Auto) 6.0 L, Monocytes (%) (Auto) 4.0, Eosinophils (%) (Auto) 4.4 H, Basophils (%) (Auto) 0.1, Neutrophils # (Auto) 9.0 H, Lymphocytes # (Auto) 0.6 L, Monocytes # (Auto) 0.4, Eosinophils # (Auto) 0.5, Basophils # (Auto) 0.0, Calcium Level 8.3 L Microbiology Microbiology 12/14/18 Blood Culture, Received Pending 12/14/18 Blood Culture, Received Pending NOELLE SANDRA PGY-1 Dec 15, 2018 09:20 LILA MENDOZA MD Dec 15, 2018 16:22
--- NOTE | 2018-12-15 10:17 | ECGEPIP ---
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
[2018-12-15] MEDS: cefTRIAXone SOD 1 GM in D5W MINI-BAG PLUS 50 ML IV SCH (11:54)
[2018-12-15] MEDS ORDERED: AZITHROMYCIN INJ 500 MG, VIAL MATE ADAPTER 1 EACH in D5W 250 ML IV SCH (13:00)
[2018-12-15] MEDS: AZITHROMYCIN INJ 500 MG, VIAL MATE ADAPTER 1 EACH in D5W 250 ML IV SCH (13:30)
[2018-12-15 14:00] VITALS: BP 105/45
[2018-12-15] MEDS: DONEPEZIL 5 MG TAB PO SCH (20:32)
[2018-12-15] MEDS: SIMVASTATIN 40 MG TAB PO SCH (20:32)
[2018-12-15 22:00] VITALS: BP 137/72
[2018-12-16 06:00] VITALS: BP 130/70
[2018-12-16 06:25] LABS: BASO % 0.3 % (0.0-1.0); EOS # 0.5 10^3/uL (0.0-0.50); HEMATOCRIT 31.2 % (36.0-47.0); HEMOGLOBIN 10.1 g/dl (12.0-15.5); LYMPH # 0.6 10^3/uL (1.5-4.5); LYMPH % 7.1 % (24.0-44.0); MEAN CORPUSCULAR HEMOGLOBIN 29.8 pg (27.0-33.0); MEAN CORPUSCULAR HGB CONC 32.4 g/dl (32.0-36.5); MONO # 0.4 10^3/uL (0.0-0.8); MONO % 4.8 % (0.0-5.0); NEUTROPHILS # 6.2 10^3/uL (1.8-7.7); NEUTROPHILS % 80.3 % (36.0-66.0); PLATELET COUNT, AUTOMATED 127 10^3/uL (150-450); RED BLOOD COUNT 3.39 10^6/uL (4.00-5.40); WHITE BLOOD COUNT 7.7 10^3/uL (4.0-10.0)
[2018-12-16 06:55] LABS: CALCIUM LEVEL 8.3 MG/DL (8.8-10.2); CREATININE FOR GFR 1.13 MG/DL (0.55-1.30); GLOMERULAR FILTRATION RATE 48.5 (>32); MAGNESIUM LEVEL 2.2 MG/DL (1.8-2.4); POTASSIUM SERUM 3.1 MEQ/L (3.5-5.1)
[2018-12-16] MEDS: ADVAIR HFA 115/21MCG INHALER INH SCH ×2 (07:18→20:15)
[2018-12-16] MEDS: COLCHICINE 0.6 MG TAB PO SCH (09:00)
[2018-12-16] MEDS: IRBESARTAN 150 MG TAB PO SCH (09:00)
[2018-12-16] MEDS ORDERED: POTASSIUM CHLORIDE 10 MEQ SR TABLET PO ONE (09:00)
[2018-12-16] MEDS: CALCIUM CARBONATE 500 MG CHEW U/D PO SCH (09:25)
[2018-12-16] MEDS: ALLOPURINOL 300 MG TAB PO SCH (09:26)
[2018-12-16] MEDS: ASPIRIN 81 MG ENTERIC TAB PO SCH ×2 (09:26→09:38)
[2018-12-16] MEDS: ENOXAPARIN 30 MG/0.3 ML SYR (J1650) SC SCH (09:26)
[2018-12-16] MEDS: NEBIVOLOL 5 MG TAB (BYSTOLIC) PO SCH (09:26)
--- NOTE | 2018-12-16 10:09 | IPNPDOC ---
Date Seen The patient was seen on 12/16/18. Progress Note SUBJECTIVE: Patient is a 88-year-old female presented with change in mental status from baseline and fever, admitted for treatment of community-acquired pneumonia Patient is seen and examined today in her room, sitting up in a chair. She is still somewhat confused today, but again patient appears more alert and less lethargic, and seems to have an easier time answering questions today than ye sterday. She was able to tell me her name, but not where she is, the date, or her date of . Family does state she typically remembers her date of , but due to her dementia does not always know where she is or the current date. Family is present at bedside and agrees she does appear to be mentating somewhat better today than yesterday. She denies fevers, chills, headaches, lightheadedness, shortness of breath, cough, chest pain, palpitations, nausea, vomiting, abdominal pain, diarrhea, dysuria, urinary frequency, itchiness of the skin. OBJECTIVE: PHYSICAL EXAMINATION: VITAL SIGNS: Please see below. GENERAL: More alert than yesterday, comfortable, in no acute distress HEENT: PERRLA, EOMI, moist mucous membranes CARDIOVASCULAR: Regular rate and rhythm. Normal S1 and S2, 3/6 MALINI right upper sternal border RESPIRATORY: Clear to auscultation bilaterally, improved from yesterday. ABDOMINAL: Soft, nontender, nondistended, bowel sounds present, no masses or hepatosplenomegaly appreciated EXTREMITIES: No edema or cyanosis. Pulses 2+/4 and radial and posterior tibial arteries, bilateral calf tenderness NEUROLOGICAL: Alert and oriented 1 to person only, cranial nerves 212 grossly intact, no focal deficits appreciated PSYCHOLOGICAL: Remains somewhat confused, but more alert SKIN: Diffuse, patchy, maculopapular blanching rash which is worse on the back that extends onto the chest, arms, and legs, stable from yesterday. Rash on her abdomen has mostly resolved with just some mild blanching erythema. LABORATORY DATA, IMAGING STUDIES, MICROBIOLOGY: Please see below. IMAGING: CXR 12/14: The cardiac silhouette is accentuated by technique. Mild cardiomegaly cannot be ruled out. Patchy opacities are seen in the left retrocardiac region representing a change from the prior exam. There is a slight left CP angle blunting. Head CT 12/14:There is no evidence of an acute intracranial hemorrhagic or nonhemorrhagic event. There is evidence of deep white matter ischemic change. There is cerebral and cerebellar atrophy. If an acute nonhemorrhagic infarction is of clinical concern consider followup with MRI. ASSESSMENT AND PLAN: This is a 88-year-old female presented with change in mental status from baseline and fever, admitted for treatment of community- acquired pneumonia. PROBLEMS: 1. Community acquired pneumonia. Patient presented with fever up to 102.2 and altered mental status and was found to have an area of consolidation on chest x-ray suggestive of pneumonia. Antibiotic coverage with ceftriaxone (day #3 of 5) and azithromycin (day #3 of 5). Blood cultures 2 negative after 24 hours. If she is able to produce some sputum, will also send a sputum culture. Lactic acid level normal at 0.8, procalcitonin 0.72 Continues to saturate well without supplemental oxygen. 2. Rash Rash present on the abdomen appears to be more of a heat rash which may have been associated with her fever, appears to be mostly resolved today, continue to monitor. Rash present on the arms, legs, and back match where the gown touches her skin. Believe this may be a sensitivity reaction to the gown. We will have a family member bring in that down for her to wear home and see if this helps. Stable today, continue to monitor If the rash does not improve, may consider other causes of rash with fever such as viral illness. 3. Altered mental status. Patient does have some baseline dementia, but family states she did have a acute change in mental status. On the day of presentation and is not typically so lethargic or difficult to converse with. Suspect altered mental status is due to a decompensation of her dementia due to acute illness Head CT negative for acute stroke. May follow-up with MRI if mental status does not improve with pneumonia treatment. Patient does seem much more alert today than on presentation and yesterday, but is still fairly confused and only oriented 1 to person. Family states that baseline. She does not typically remember the date and is not always sure where she is. Patient currently cannot remember her date of , which family states at her baseline she would always remember this easily. 4. Hypertension. Continue home irbesartan and nebivolol 5. CHF. Continue home nebivolol. 6. Asthma. Continue home Advair, DuoNeb nebs as needed. 7. Gout. Continue home medications including allopurinol and cultures seen. 8. Dementia. Continue home donepezil. 9. Hyperlipidemia. Continue home simvastatin. 10. B12 deficiency. Continue home B12 supplementation. 11. DVT prophylaxis. Lovenox DISPOSITION: Inpatient pending clinical improvement VS, I&O, 24H, Fishbone Vital Signs/I&O Vital Signs Date Time Temp Pulse Resp B/P (MAP) Pulse Ox O2 Delivery O2 Flow Rate FiO2 12/16/18 09:26 67 130/70 12/16/18 06:00 96.9 16 97 12/14/18 11:08 Room Air I&O- Last 24 Hours up to 6 AM 12/16/18 06:00 Intake Total 358 ml Output Total 300 ml Balance 58 ml Laboratory Data 24H LABS Laboratory Tests 2 12/16/18 05:38: Immature Granulocyte % (Auto) 0.5, White Blood Count 7.7, Red Blood Count 3.39L, Hemoglobin 10.1L, Hematocrit 31.2L, Mean Corpuscular Volume 92.0, Mean Corpuscular Hemoglobin 29.8, Mean Corpuscular Hemoglobin Concent 32.4, Red Cell Distribution Width 15.0H, Platelet Count 127L, Neutrophils (%) (Auto) 80.3H, Lymphocytes (%) (Auto) 7.1L, Monocytes (%) (Auto) 4.8, Eosinophils (%) (Auto) 7.0H, Basophils (%) (Auto) 0.3, Neutrophils # (Auto) 6.2, Lymphocytes # (Auto) 0.6L, Monocytes # (Auto) 0.4, Eosinophils # (Auto) 0.5, Basophils # (Auto) 0.0, Nucleated Red Blood Cells % (auto) 0.0, Anion Gap 7L, Glomerular Filtration Rate 48.5, Blood Urea Nitrogen 21H, Creatinine 1.13, Sodium Level 137, Potassium Level 3.1L, Chloride Level 103, Carbon Dioxide Level 27, Calcium Level 8.3L, Magnesium Level 2.2 CBC/BMP Laboratory Tests 12/16/18 05:38 Red Blood Count 3.39 L, Mean Corpuscular Volume 92.0, Mean Corpuscular Hemoglobin 29.8, Mean Corpuscular Hemoglobin Concent 32.4, Red Cell Distribution Width 15.0 H, Neutrophils (%) (Auto) 80.3 H, Lymphocytes (%) (Auto) 7.1 L, Monocytes (%) (Auto) 4.8, Eosinophils (%) (Auto) 7.0 H, Basophils (%) (Auto) 0.3, Neutrophils # (Auto) 6.2, Lymphocytes # (Auto) 0.6 L, Monocytes # (Auto) 0.4, Eosinophils # (Auto) 0.5, Basophils # (Auto) 0.0, Calcium Level 8.3 L Microbiology Microbiology 12/14/18 Blood Culture - Preliminary, Resulted No growth after 24 hours . All specim... 12/14/18 Blood Culture - Preliminary, Resulted No growth after 24 hours . All specim... NOELLE SANDRA PGY-1 Dec 16, 2018 10:09
[2018-12-16] MEDS: cefTRIAXone SOD 1 GM in D5W MINI-BAG PLUS 50 ML IV SCH (11:22)
[2018-12-16] MEDS ORDERED: POTASSIUM CHLORIDE 10% LIQ 20 MEQ/15 ML UDC PO ONE (12:00)
[2018-12-16 14:00] VITALS: BP 130/61
[2018-12-16] MEDS: AZITHROMYCIN INJ 500 MG, VIAL MATE ADAPTER 1 EACH in D5W 250 ML IV SCH (15:16)
[2018-12-16] MEDS: DONEPEZIL 5 MG TAB PO SCH (21:05)
[2018-12-16] MEDS: SIMVASTATIN 40 MG TAB PO SCH (21:05)
[2018-12-16 22:00] VITALS: BP 143/59
[2018-12-17 06:00] VITALS: BP 148/69
[2018-12-17 06:27] LABS: BASO % 0.3 % (0.0-1.0); EOS # 0.6 10^3/uL (0.0-0.50); HEMATOCRIT 27.7 % (36.0-47.0); LYMPH # 0.6 10^3/uL (1.5-4.5); LYMPH % 8.7 % (24.0-44.0); MEAN CORPUSCULAR HEMOGLOBIN 29.2 pg (27.0-33.0); MEAN CORPUSCULAR HGB CONC 32.5 g/dl (32.0-36.5); MEAN CORPUSCULAR VOLUME 89.9 fl (80.0-96.0); MONO # 0.4 10^3/uL (0.0-0.8); MONO % 5.4 % (0.0-5.0); NEUTROPHILS # 5.2 10^3/uL (1.8-7.7); NEUTROPHILS % 75.6 % (36.0-66.0); PLATELET COUNT, AUTOMATED 130 10^3/uL (150-450); RED BLOOD COUNT 3.08 10^6/uL (4.00-5.40); WHITE BLOOD COUNT 6.9 10^3/uL (4.0-10.0)
[2018-12-17 06:56] LABS: CALCIUM LEVEL 8.2 MG/DL (8.8-10.2); CREATININE FOR GFR 1.05 MG/DL (0.55-1.30); GLOMERULAR FILTRATION RATE 52.8 (>32); MAGNESIUM LEVEL 2.1 MG/DL (1.8-2.4); POTASSIUM SERUM 3.5 MEQ/L (3.5-5.1)
[2018-12-17] MEDS: ADVAIR HFA 115/21MCG INHALER INH SCH (07:31)
[2018-12-17] MEDS: IRBESARTAN 150 MG TAB PO SCH (09:01)
[2018-12-17] MEDS: ASPIRIN 81 MG ENTERIC TAB PO SCH (09:01)
[2018-12-17 09:03] VITALS: BP 148/69
[2018-12-17] MEDS: COLCHICINE 0.6 MG TAB PO SCH (09:03)
[2018-12-17] MEDS: CALCIUM CARBONATE 500 MG CHEW U/D PO SCH (09:03)
[2018-12-17] MEDS: ALLOPURINOL 300 MG TAB PO SCH (09:03)
[2018-12-17] MEDS: NEBIVOLOL 5 MG TAB (BYSTOLIC) PO SCH (09:03)
[2018-12-17] MEDS: ENOXAPARIN 30 MG/0.3 ML SYR (J1650) SC SCH (09:04)
--- NOTE | 2018-12-17 10:12 | IPNPDOC ---
Date Seen The patient was seen on 12/17/18. Progress Note SUBJECTIVE: Patient is a 88-year-old female presented with change in mental status from baseline and fever, admitted for treatment of community-acquired pneumonia Patient is seen and examined today in her room, sitting up in a chair. . She does appear alert today and continues to appear more oriented with each day. She is oriented to person but not place or time, which seems to be her baseline according to family. Family states she does typically remember her date of . When asked her date of today, the patient is able to come up with her month of . After a few seconds, but struggles with the day and year. When asked again after my exam, the patient is able to state her month and year of , but again cannot remember the day on her own. This does seem to be an improvement from yesterday. Family is present at bedside and agrees she does appear to be mentating somewhat better today than yesterday, but still not quite at her baseline before she was sick. She denies fevers, chills, headaches, lightheadedness, shortness of breath, cough, chest pain, palpitations, nausea, vomiting, abdominal pain, diarrhea, dysuria, urinary frequency, itchiness of the skin. OBJECTIVE: PHYSICAL EXAMINATION: VITAL SIGNS: Please see below. GENERAL: More alert than yesterday, comfortable, in no acute distress HEENT: PERRLA, EOMI, moist mucous membranes CARDIOVASCULAR: Regular rate and rhythm. Normal S1 and S2, 3/6 MALINI right upper sternal border RESPIRATORY: Clear to auscultation bilaterally ABDOMINAL: Soft, nontender, nondistended, bowel sounds present, no masses or hepatosplenomegaly appreciated EXTREMITIES: No edema or cyanosis. Pulses 2+/4 and radial and posterior tibial arteries, bilateral calf tenderness NEUROLOGICAL: Alert and oriented 1 to person only, cranial nerves 212 grossly intact, no focal deficits appreciated PSYCHOLOGICAL: Remains somewhat confused, but more alert SKIN: Diffuse, patchy, maculopapular blanching rash which is worse on the back that extends onto the chest, arms, and legs, improved from yesterday. Rash on her abdomen has mostly resolved. LABORATORY DATA, IMAGING STUDIES, MICROBIOLOGY: Please see below. IMAGING: CXR 12/14: The cardiac silhouette is accentuated by technique. Mild cardiomegaly cannot be ruled out. Patchy opacities are seen in the left retrocardiac region representing a change from the prior exam. There is a slight left CP angle blunting. Head CT 12/14:There is no evidence of an acute intracranial hemorrhagic or non hemorrhagic event. There is evidence of deep white matter ischemic change. There is cerebral and cerebellar atrophy. If an acute nonhemorrhagic infarction is of clinical concern consider followup with MRI. ASSESSMENT AND PLAN: This is a 88-year-old female presented with change in mental status from baseline and fever, admitted for treatment of community- acquired pneumonia. PROBLEMS: 1. Community acquired pneumonia. Patient presented with fever up to 102.2 and altered mental status and was fou nd to have an area of consolidation on chest x-ray suggestive of pneumonia. Antibiotic coverage with ceftriaxone (day #4 of 5) and azithromycin (day #4 of 5). Blood cultures 2 negative after 24 hours. If she is able to produce some sputum, will also send a sputum culture. Lactic acid level normal at 0.8, procalcitonin 0.72 Continues to saturate well without supplemental oxygen.. She has not had any recurrent fevers or subjective fever/chills. 2. Rash Rash present on the abdomen appears to be more of a heat rash which may have been associated with her fever, appears to be resolved at this point continue to monitor. Rash present on the arms, legs, and back match where the gown touches her skin. Believe this may be a sensitivity reaction to the gown. Improved today, continue to monitor. If the rash does not improve, may consider other causes of rash with fever such as viral illness. 3. Altered mental status. Patient does have some baseline dementia, but family states she did have a acute change in mental status. On the day of presentation and is not typically so lethargic or difficult to converse with. Suspect altered mental status is due to a decompensation of her dementia due to acute illness Head CT negative for acute stroke. May follow-up with MRI if mental status does not improve with pneumonia treatment. Patient does seem much more alert today than on presentation and yesterday, but is still fairly confused and only oriented 1 to person. Family states that is her baseline. She does not typically remember the date and is not always sure where she is. Patient making some progress today with remembering her date of , but still struggling more than her baseline. 4. Hypertension. Continue home irbesartan and nebivolol 5. CHF. Continue home nebivolol. 6. Asthma. Continue home Advair, DuoNeb nebs as needed. 7. Gout. Continue home medications including allopurinol and cultures seen. 8. Dementia. Continue home donepezil. 9. Hyperlipidemia. Continue home simvastatin. 10. B12 deficiency. Continue home B12 supplementation. 11. DVT prophylaxis. Lovenox DISPOSITION: Inpatient pending clinical improvement [facility] Vital Signs Date Time Temp Pulse Resp B/P (MAP) Pulse Ox O2 Delivery O2 Flow Rate FiO2 12/17/18 09:03 75 148/69 12/17/18 06:00 99.7 16 99 12/14/18 11:08 Room Air I&O- Last 24 Hours up to 6 AM 12/17/18 06:00 Intake Total 550 ml Output Total 125 ml Balance 425 ml Laboratory Data 24H LABS Laboratory Tests 2 12/17/18 05:48: Immature Granulocyte % (Auto) 1.0, White Blood Count 6.9, Red Blood Count 3.08L, Hemoglobin 9.0L, Hematocrit 27.7L, Mean Corpuscular Volume 89.9, Mean Corpuscular Hemoglobin 29.2, Mean Corpuscular Hemoglobin Concent 32.5, Red Cell Distribution Width 14.8H, Platelet Count 130L, Neutrophils (%) (Auto) 75.6H, Lymphocytes (%) (Auto) 8.7L, Monocytes (%) (Auto) 5.4H, Eosinophils (%) (Auto) 9.0H, Basophils (%) (Auto) 0.3, Neutrophils # (Auto) 5.2, Lymphocytes # (Auto) 0.6L, Monocytes # (Auto) 0.4, Eosinophils # (Auto) 0.6H, Basophils # (Auto) 0.0, Nucleated Red Blood Cells % (auto) 0.0, Anion Gap 7L, Glomerular Filtration Rate 52.8, Blood Urea Nitrogen 20H, Creatinine 1.05, Sodium Level 137, Potassium Level 3.5, Chloride Level 105, Carbon Dioxide Level 25, Calcium Level 8.2L, Magnesium Level 2.1 CBC/BMP Laboratory Tests 12/17/18 05:48 Red Blood Count 3.08 L, Mean Corpuscular Volume 89.9, Mean Corpuscular Hemoglobin 29.2, Mean Corpuscular Hemoglobin Concent 32.5, Red Cell Distribution Width 14.8 H, Neutrophils (%) (Auto) 75.6 H, Lymphocytes (%) (Auto) 8.7 L, [place] cytes (%) (Auto) 5.4 H, Eosinophils (%) (Auto) 9.0 H, Basophils (%) (Auto) 0.3, Neutrophils # (Auto) 5.2, Lymphocytes # (Auto) 0.6 L, Monocytes # (Auto) 0.4, Eosinophils # (Auto) 0.6 H, Basophils # (Auto) 0.0, Calcium Level 8.2 L Microbiology Microbiology 12/14/18 Blood Culture - Preliminary, Resulted No Growth after 48 hours. All Specime... 12/14/18 Blood Culture - Preliminary, Resulted No Growth after 48 hours. All Specime... NOELLE SANDRA PGY-1 Dec 17, 2018 10:12
[2018-12-17] MEDS ORDERED: AZIT-12 PO (11:00)
[2018-12-17] MEDS ORDERED: CEFD1CAP8 PO (11:00)
[2018-12-17] MEDS ORDERED: SM A10CA PO (11:00)
--- NOTE | 2018-12-17 14:34 | DS.PDOC ---
Discharge Summary General Date of Admission Dec 14, 2018 at 13:50 Date of Discharge 12/17/2018 Primary Care Physician: KANCHAN BLOOM MD Attending Physician: LILA MENDOZA MD Discharge Summary PROCEDURES PERFORMED DURING STAY: None ADMITTING DIAGNOSES: 1. Community acquired pneumonia. 2. Altered mental status. 3. Hypertension. 4. CHF. 5. Asthma. 6. Gout. 7. Dementia. 8. Hyperlipidemia. 9. B12 deficiency DISCHARGE DIAGNOSES: 1. Community acquired pneumonia. 2. Altered mental status. 3. Hypertension. 4. CHF. 5. Asthma. 6. Gout. 7. Dementia. 8. Hyperlipidemia. 9. B12 deficiency COMPLICATIONS/CHIEF COMPLAINT: FEVER. HISTORY OF PRESENT ILLNESS: 88-year-old female who presented to the emergency room with altered mental status, as noticed by family members. The patient's son notes that she appeared very lethargic and unable to hold a conversation this morning when she woke up. The son states that yesterday she did seem slightly off of her baseline for her mental status, but the day before. They didn't notice any altered mental status. The son also notes that the patient did seem febrile at home this morning. Family members present in the room and provided most of the history, as the patient was fairly lethargic and unable to hold a conversation. The family does note that the patient was recently treated within the past couple of weeks for a gout flare of her knee and hand with a course of prednisone, which she did complete some time in the past week. Otherwise, there have been no recent changes to her medications or health status recently. Patient was lethargic and has difficulty answering questions, so most of the history was obtained from family members present in the room. Patient was evaluated in the emergency room and found to have a fever up to 102.2 and consolidation in the left lower lung on x-ray suggestive of pneumonia. HOSPITAL COURSE: Patient was admitted and started on broad-spectrum antibiotics for community-acquired pneumonia with azithromycin and ceftriaxone. Blood cultures were sent and remained negative during her admission. Patient was unable to produce any sputum for culture. The patient was requiring some supplemental oxygen via nasal cannula well. In the ED, but proceeded to have adequate oxygen saturations on room air. Once admitted. On the second day of admission, the patient's mental status had some clear improvement, with significantly less lethargy and improved ability to answer questions. The patient at this point was able to provide a review of systems and 10 point review of systems was negative. She did also have a rash on her abdomen, which was attributed to a heat rash associated with her fever, and resolved after a couple days. She also developed a rash on her back and extremities along the distribution where her gown was touching her, which was attributed to a sensitivity reaction. This rash also improved throughout her admission. The patient's mental status improved throughout her admission. On the day of discharge, the patient had clear improvement in her mental status from the day of her admission. . She appeared to understand questions, which were asked her more easily, and consistently answered appropriately. The patient was able to state the month and year of her date, which she was not able to state any other days of her admission. The family endorsed that the patient is always oriented to person, but not always place or time, but she typically at her ba seline can't remember her date of . She was evaluated and treated by physical therapy who found her safe for discharge home. The patient was discharged with oral antibiotics to finish a total of 5 day antibiotic course with azithromycin and cefdinir. On the day of discharge, the patient's condition was stable and safe for discharge home. DISCHARGE MEDICATIONS: Please see below. ALLERGIES: Please see below. PHYSICAL EXAMINATION ON DISCHARGE: VITAL SIGNS: Please see below. GENERAL: Alert, comfortable, no acute distress HEENT:. PERRLA, EOMI, moist mucous membranes NECK:, Supple, no lymphadenopathy appreciated CARDIOVASCULAR EXAMINATION:. Regular rate and rhythm. Normal S1 and S2, 3/6 MALINI right upper sternal border RESPIRATORY EXAMINATION: Clear to auscultation bilaterally ABDOMINAL EXAMINATION:, Soft, nontender, nondistended, bowel sounds present, no masses or hepatosplenomegaly appreciated EXTREMITIES: No edema or cyanosis. Pulses 2+/4 and radial and posterior tibial arteries SKIN: Mild diffuse patchy maculopapular blanching rash over the back, upper arms, and upper legs, which is improved. NEUROLOGICAL EXAMINATION: Alert and oriented 1 to person only, cranial nerves 212 grossly intact, no focal deficits appreciated PSYCHIATRIC EXAMINATION: Alert but remained somewhat confused LABORATORY DATA: Please see below. IMAGING: CXR 12/14: The cardiac silhouette is accentuated by technique. Mild cardiomegaly cannot be ruled out. Patchy opacities are seen in the left retrocardiac region representing a change from the prior exam. There is a slight left CP angle blunting. Head CT 12/14:There is no evidence of an acute intracranial hemorrhagic or nonhemorrhagic event. There is evidence of deep white matter ischemic change. There is cerebral and cerebellar atrophy. If an acute nonhemorrhagic infarction is of clinical concern consider followup with MRI. PROGNOSIS: Fair ACTIVITY: As tolerated. DIET: As tolerated DISCHARGE PLAN: Home DISPOSITION: 01 Home, Self-Care. DISCHARGE INSTRUCTIONS: 1. Follow up with your PCP in 7-10 days 2. Please leaf size picker your antibiotics and finish the full course of both. Please also take probiotic for 5 days. 3. Continue to take all your regular home medications as prescribed 4. If your symptoms return please call your PCP or return to the ER for further evaluation. ITEMS TO FOLLOWUP ON ON OUTPATIENT: 1. Pneumonia 2. Altered mental status DISCHARGE CONDITION: Stable. TIME SPENT ON DISCHARGE: Greater than 35 minutes. Vital Signs/I&Os Vital Signs Date Time Temp Pulse Resp B/P (MAP) Pulse Ox O2 Delivery O2 Flow Rate FiO2 12/17/18 09:03 75 148/69 12/17/18 06:00 99.7 16 99 12/14/18 11:08 Room Air I&O- Last 24 Hours up to 6 AM 12/17/18 06:00 Intake Total 550 ml Output Total 125 ml Balance 425 ml Laboratory Data Labs 24H Laboratory Tests 2 12/17/18 05:48: Immature Granulocyte % (Auto) 1.0, White Blood Count 6.9, Red Blood Count 3.08L, Hemoglobin 9.0L, Hematocrit 27.7L, Mean Corpuscular Volume 89.9, Mean Corpuscular Hemoglobin 29.2, Mean Corpuscular Hemoglobin Concent 32.5, Red Cell Distribution Width 14.8H, Platelet Count 130L, Neutrophils (%) (Auto) 75.6H, Lymphocytes (%) (Auto) 8.7L, Monocytes (%) (Auto) 5.4H, Eosinophils (%) (Auto) 9.0H, Basophils (%) (Auto) 0.3, Neutrophils # (Auto) 5.2, Lymphocytes # (Auto) 0.6L, Monocytes # (Auto) 0.4, Eosinophils # (Auto) 0.6H, Basophils # (Auto) 0.0, Nucleated Red Blood Cells % (auto) 0.0, Anion Gap 7L, Glomerular Filtration Rate 52.8, Blood Urea Nitrogen 20H, Creatinine 1.05, Sodium Level 137, Potassium Level 3.5, Chloride Level 105, Carbon Dioxide Level 25, Calcium Level 8.2L, Magnesium Level 2.1 CBC/BMP Laboratory Tests 12/17/18 05:48 Red Blood Count 3.08 L, Mean Corpuscular Volume 89.9, Mean Corpuscular Hemoglobin 29.2, Mean Corpuscular Hemoglobin Concent 32.5, Red Cell Distribution Width 14.8 H, Neutrophils (%) (Auto) 75.6 H, Lymphocytes (%) (Auto) 8.7 L, Monocytes (%) (Auto) 5.4 H, Eosinophils (%) (Auto) 9.0 H, Basophils (%) (Auto) 0.3, Neutrophils # (Auto) 5.2, Lymphocytes # (Auto) 0.6 L, Monocytes # (Auto) 0.4, Eosinophils # (Auto) 0.6 H, Basophils # (Auto) 0.0, Calcium Level 8.2 L Microbiology Microbiology 12/14/18 Blood Culture - Preliminary, Resulted No Growth after 72 hours. All specime... 12/14/18 Blood Culture - Preliminary, Resulted No Growth after 72 hours. All specime... Discharge Medications Scheduled Allopurinol (Zyloprim) 300 Mg Tablet, 300 MG PO DAILY, (Reported) Aspirin (Aspir 81) 81 Mg Tablet.dr, 81 MG PO DAILY, (Reported) Azithromycin (Azithromycin) 250 Mg Tablet, 250 MG PO DAILY Calcium Carbonate (Calcium) 500 Mg Tab.chew, 500 MG PO DAILY, (Reported) Cefdinir (Cefdinir) 300 Mg Capsule, 1 CAP PO BID Colchicine (Colcrys) 0.6 Mg Tablet, 0.3 MG PO DAILY, (Reported) Cyanocobalamin (Vitamin B-12) (Vitamin B12) 5,000 Mcg Tab.rapdis, 5,000 MCG PO DAILY, (Reported) Donepezil HCl (Aricept) 5 Mg Tablet, 5 MG PO QHS, (Reported) Irbesartan (Irbesartan) 300 Mg Tablet, 300 MG PO DAILY, (Reported) Lactobacillus Acidophilus (Acidophilus) 1 Each Capsule, 1 CAP PO DAILY Nebivolol HCl (Bystolic) 5 Mg Tablet, 5 MG PO DAILY, (Reported) Salmeterol/Fluticasone (Advair 250-50 Diskus) 1 Each Blst.w.dev, 1 PUFF INH BID, (Reported) Simvastatin (Simvastatin) 40 Mg Tablet, 40 MG PO QHS, (Reported) Allergies Coded Allergies: No Known Allergies (Verified , 11/01/02) NOELLE SANDRA PGY-1 Dec 17, 2018 14:34
== END 2018-12-17 12:30 | disposition home or self-care (01) | DRG 195 ==
LOC: M ED 09:38 → M ED INP 13:50 → M MSPAV 16:02
PROVIDERS: ADMIT Internal Medicine; ATTEND Internal Medicine
DX: J18.9 Pneumonia, unspecified organism (principal); R41.82 Altered mental status, unspecified; I11.0 Hypertensive heart disease with heart failure; I50.9 Heart failure, unspecified; E78.5 Hyperlipidemia, unspecified; J45.909 Unspecified asthma, uncomplicated; F03.90 Unspecified dementia, unspecified severity, without behavioral disturbance, psychotic disturbance, mood disturbance, and anxiety; R21 Rash and other nonspecific skin eruption; M10.9 Gout, unspecified; E53.8 Deficiency of other specified B group vitamins; K57.90 Diverticulosis of intestine, part unspecified, without perforation or abscess without bleeding; Z79.82 Long term (current) use of aspirin; Z79.899 Other long term (current) drug therapy

== ENCOUNTER → 2019-04-29 | Outpatient (REF) | payer MEDICARE ==
[~2019-04-29] MED LIST changes: +AZIT-12 PO; +CEFD1CAP8 PO; -SIMV40TA2 PO; +SIMV40TA20 PO; +SM A10CA PO
[2019-04-29 18:10] LABS: HEMATOCRIT 40.3 % (36.0-47.0); HEMOGLOBIN 12.7 g/dl (12.0-15.5); MEAN CORPUSCULAR HEMOGLOBIN 29.7 pg (27.0-33.0); MEAN CORPUSCULAR HGB CONC 31.5 g/dl (32.0-36.5); MEAN CORPUSCULAR VOLUME 94.2 fl (80.0-96.0); PLATELET COUNT, AUTOMATED 267 10^3/uL (150-450); RED BLOOD COUNT 4.28 10^6/uL (4.00-5.40); WHITE BLOOD COUNT 7.4 10^3/uL (4.0-10.0)
[2019-04-29 18:11] LABS: CALCIUM LEVEL 9.1 MG/DL (8.8-10.2); CREATININE FOR GFR 1.01 MG/DL (0.55-1.30); GLOMERULAR FILTRATION RATE 55.1 (>32); POTASSIUM SERUM 3.7 MEQ/L (3.5-5.1)
== END ==
LOC: M SFHCPLAZ 15:08
PROVIDERS: ATTEND Family Medicine
DX: N18.3 Chronic kidney disease, stage 3 (moderate) (principal)
CPT/HCPCS: 36415; 80048; 85027; G0463

== ENCOUNTER → 2020-01-06 | Outpatient (CLI) | payer MEDICARE ==
[~2020-01-06] MED LIST changes: -ASPI81TA85 PO; +ASPI81TA86 PO; -IRBE300T10 PO; +IRBE300T7 PO
[2020-01-06 14:36] LABS: BLOOD UREA NITROGEN 13 MG/DL (7-18); CARBON DIOXIDE LEVEL 30 MEQ/L (21-32); CHLORIDE LEVEL 109 MEQ/L (98-107); CHOLESTEROL LEVEL 165 MG/DL (<200); CREATININE FOR GFR 0.84 MG/DL (0.55-1.30); GLOMERULAR FILTRATION RATE > 60.0 (>32); GLUCOSE, FASTING 97 MG/DL (70-100); HDL CHOLESTEROL 60 MG/DL (>40); LDL CHOLESTEROL 67 MG/DL (<100); NON-HDL-C 105 MG/DL; POTASSIUM SERUM 3.7 MEQ/L (3.5-5.1); SODIUM LEVEL 142 MEQ/L (136-145); TRIGLYCERIDES LEVEL 189 MG/DL (<150)
== END ==
LOC: M PLALAB 12:15
PROVIDERS: ATTEND Family Medicine
DX: I12.9 Hypertensive chronic kidney disease with stage 1 through stage 4 chronic kidney disease, or unspecified chronic kidney disease (principal); N18.3 Chronic kidney disease, stage 3 (moderate); E78.2 Mixed hyperlipidemia

== ENCOUNTER → 2020-07-11 | Outpatient (REF) | payer MEDICARE ==
[2020-07-11 15:58] LABS: BLOOD UREA NITROGEN 17 MG/DL (7-18); CALCIUM LEVEL 9.4 MG/DL (8.8-10.2); CARBON DIOXIDE LEVEL 29 MEQ/L (21-32); CHLORIDE LEVEL 109 MEQ/L (98-107); CREATININE FOR GFR 0.86 MG/DL (0.55-1.30); GLOMERULAR FILTRATION RATE > 60.0 (>32); GLUCOSE, FASTING 69 MG/DL (70-100); POTASSIUM SERUM 4.2 MEQ/L (3.5-5.1); SODIUM LEVEL 142 MEQ/L (136-145)
== END ==
LOC: M SFHCPLAZ 12:14
PROVIDERS: ATTEND Family Medicine
DX: I10 Essential (primary) hypertension (principal)
CPT/HCPCS: 36415; 80048; G0463

== ENCOUNTER → 2021-01-16 | Outpatient (CLI) | payer MEDICARE ==
[2021-01-16 15:41] LABS: HEMATOCRIT 39.6 % (36.0-47.0); HEMOGLOBIN 12.7 g/dl (12.0-15.5); MEAN CORPUSCULAR HEMOGLOBIN 31.3 pg (27.0-33.0); MEAN CORPUSCULAR HGB CONC 32.1 g/dl (32.0-36.5); MEAN CORPUSCULAR VOLUME 97.5 fl (80.0-96.0); PLATELET COUNT, AUTOMATED 236 10^3/uL (150-450); RED BLOOD COUNT 4.06 10^6/uL (4.00-5.40); WHITE BLOOD COUNT 8.2 10^3/uL (4.0-10.0)
[2021-01-16 16:06] LABS: BLOOD UREA NITROGEN 18 MG/DL (7-18); CALCIUM LEVEL 9.3 MG/DL (8.8-10.2); CARBON DIOXIDE LEVEL 26 MEQ/L (21-32); CHLORIDE LEVEL 111 MEQ/L (98-107); CREATININE FOR GFR 0.88 MG/DL (0.55-1.30); FERRITIN 85 NG/ML (8-252); GLOMERULAR FILTRATION RATE > 60.0 (>32); GLUCOSE, FASTING 88 MG/DL (70-100); POTASSIUM SERUM 4.3 MEQ/L (3.5-5.1); SODIUM LEVEL 143 MEQ/L (136-145)
[2021-01-16 16:17] LABS: TOTAL 25(OH) VITAMIN D 23.5 NG/ML (30.0-100.0); VITAMIN B12 LEVEL 295 PG/ML (247-911)
== END ==
LOC: M PLALAB 12:16
PROVIDERS: ATTEND Family Medicine
DX: E55.9 Vitamin D deficiency, unspecified (principal); I10 Essential (primary) hypertension; Z86.39 Personal history of other endocrine, nutritional and metabolic disease; Z79.899 Other long term (current) drug therapy